=== PATIENT | female | born 1995 | race Two or more races ===

== ENCOUNTER 2020-08-28 00:14 | Emergency (ER) | payer MEDICAID, OTHER ==
[~2020-08-28] VITALS: Ht 154.9 cm; Wt 68.0 kg
[2020-08-28 01:35] VITALS: BP 129/78
== END 2020-08-28 01:39 | disposition home or self-care (01) ==
LOC: ER 00:14
DX: M79.10 Myalgia, unspecified site (principal); F41.9 Anxiety disorder, unspecified; V43.52XA Car driver injured in collision with other type car in traffic accident, initial encounter; Y93.89 Activity, other specified; Y92.410 Unspecified street and highway as the place of occurrence of the external cause; Y99.8 Other external cause status